=== PATIENT | female | born 1970 | race Caucasian/White ===

== ENCOUNTER 2017-07-26 13:14 | Emergency (ER) | payer BC ==
[2017-07-26 13:15] VITALS: BP 136/75
[2017-07-26 13:19] VITALS: BMI 29.8
--- NOTE | 2017-07-26 13:20 | ED.ABDFE ---
HPI - Time seen Time seen: 13:15 - HPI Comment HPI Comment: PATIENT DENIES DYSURIA OR HEMATURIA. NO FEVER. - Complaint Chief Complaint Doctors Comments: SUDDEN ONSET OF LEFT FLANK AND BACK PAIN AND LLQ ABDOMINAL PAIN BOTED TODAY WITH NAUSEA. - Nurses notes reviewed Nurses Notes Review: Yes - Source History Provided: Parent - Mode of arrival Mode of Arrival: Ambulatory - Timing Came on: Suddenly - Duration Duration: Constant Duration: Days - Severity Severity: Moderate - Quality Quality: Sharp - Context Onset: Suddenly History of: None - Modifying Worsening Factors: Nothing Improving Factors: Nothing - Associated signs and symptoms Associated Signs and Symptoms: Nausea PMH - PMH Past Surgical History: Yes Surgical History: Appendectomy, Hysterectomy - Social History Do you use any recreational Drugs:: No ROS - Review of Systems Constitutional: No Symptoms Reported Eyes: No Symptoms Reported ENTM: No Symptoms Reported Respiratoy: No Symptoms Reported Cardiovascular: No Symptoms Reported Gastrointestinal/Abdominal: Abdominal Pain Genitourinary: Pain (LEFT FLANK PAIN.). negative: Dysuria, Frequency, Hematuria Neurological: No Symptoms Reported Musculoskeletal: Back Pain Integumentary: No Symptoms Reported Hematologic/Lymphatic: No Symptoms Reported Endocrine: No Symptoms Reported All Other Systems: Reviewed and Negative PE - Vital Signs Vitals: Temperature 98.6 F Pulse Rate 61 Respiratory Rate 18 Blood Pressure 136/75 O2 Sat by Pulse Oximetry 100 - General Limitations: No Limitations General Appearance: Alert - Head Head Exam: Normal Inspection - Eyes Eye exam: Normal Appearance - ENT ENT Exam: Normal External Ear Exam - Neck Neck Exam: Trachea Midline - Chest Chest Inspection: Symmetric Chest Wall Rise - Respiratory Respiratory Exam: Normal Lung Sounds Bilat Respiratory Exam: Bilateral Clear to Auscultation - Cardiovascular Cardiovascular Exam: Regular Rate, Normal Rhythm, Normal Heart Sounds - Abdominal Exam Abdominal Exam: Normal Bowel Sounds, Soft, Tenderness Abdominal Tenderness: LLQ, Moderate - Rectal Rectal Exam: Deferred - Back Back Exam: (L) CVA Tenderness - Extremeties Extremities Exam: Normal Inspection - External Exam: Female: Deferred : Speculum Exam (Female): Deferred : Bimanual Exam (female): Deferred - Neurologic Neurological Exam: Alert, Oriented X3 - Skin Skin Exam: Normal Color MDM - Differential Diagnosis Differential Diagnosis- Considerations may include:: Bowel Obstruction, Diverticular disease, Gastritus/PUD, Gastroenteritis, Pancreatitis, Urinary tract infection, Urolithiasis Course - Treatment Treatment: SEE ORDERS. IV PAIN AND NAUSEA MED IN ED AND IV FLUID IN ED. - Reevaluation 1st: Improved (PAIN IMPROVED) - Education/Counseling Education/Counseling: Patient, Education Educated On: Diagnosis, Needs for Follow Up ROR - Labs Reviewed Laboratory Results Reviewed?: Yes Result Diagrams: 07/26/17 13:25 07/26/17 13:25 Laboratory: WBC 14.9 X10^3/uL (3.6-10.0) H 07/26/17 13:25 RBC 5.27 X10^6/uL (3.5-5.4) 07/26/17 13:25 Hgb 14.8 g/dL (12.0-16.0) 07/26/17 13:25 Hct 43.2 % (36.0-47.0) 07/26/17 13:25 MCV 81.9 fL (80.0-100.0) 07/26/17 13:25 MCH 28.0 pg (27.0-34.0) 07/26/17 13:25 MCHC 34.2 g/dL (33.0-35.0) 07/26/17 13:25 RDW 14.2 % (11.6-16.5) 07/26/17 13:25 Plt Count 332 X10^3/uL (150.0-450.0) 07/26/17 13:25 MPV 8.5 fL (7.4-11.0) 07/26/17 13:25 Neut % (Auto) 82.2 % (42.0-75.0) H 07/26/17 13:25 Lymph % (Auto) 11.7 % (21.0-51.0) L 07/26/17 13:25 [place] % (Auto) 4.8 % (0.0-13.0) 07/26/17 13:25 Eos % (Auto) 0.8 % (0.9-2.9) L 07/26/17 13:25 Baso % (Auto) 0.5 % (0.2-1.0) 07/26/17 13:25 Neut # (Auto) 12.2 x10^3/uL (2.2-4.8) H 07/26/17 13:25 Lymph # (Auto) 1.7 X10^3/uL (1.3-2.9) 07/26/17 13:25 [place] # (Auto) 0.7 x10^3/uL (0.3-0.8) 07/26/17 13:25 Eos # (Auto) 0.1 x10^3/uL (0.0-0.2) 07/26/17 13:25 Baso # (Auto) 0.1 X10^3/uL (0.0-0.1) 07/26/17 13:25 Absolute Nucleated RBC 0.0 /100WBC 07/26/17 13:25 Sodium 140 mmol/L (136-145) 07/26/17 13:25 Corrected Sodium 141 mmol/L (136-145) 07/26/17 13:25 Potassium 4.3 mmol/L (3.5-5.1) 07/26/17 13:25 Chloride 104 mmol/L (98-107) 07/26/17 13:25 Carbon Dioxide 25.3 mmol/L (21-32) 07/26/17 13:25 BUN 17 mg/dL (7-18) 07/26/17 13:25 Creatinine 1.10 mg/dL (0.55-1.02) H 07/26/17 13:25 Est GFR (MDRD) Af Amer > 60 (>60) 07/26/17 13:25 Est GFR (MDRD) Non-Af 57 (>60) L 07/26/17 13:25 Glucose 139 mg/dL (65-99) H 07/26/17 13:25 Calcium 9.0 mg/dL (8.5-10.1) 07/26/17 13:25 Corrected Calcium TNP 07/26/17 13:25 Total Bilirubin 1.00 mg/dL (0.2-1.0) 07/26/17 13:25 AST 10 Units/L (15-37) L 07/26/17 13:25 ALT 21 Units/L (12-78) 07/26/17 13:25 Alkaline Phosphatase 74 Units/L (46-116) 07/26/17 13:25 Total Protein 7.7 g/dL (6.4-8.2) 07/26/17 13:25 Albumin 3.9 g/dL (3.4-5.0) 07/26/17 13:25 Globulin 3.8 g/dL (2.5-4.5) 07/26/17 13:25 Albumin/Globulin Ratio 1.0 Ratio (1.1-2.1) L 07/26/17 13:25 Amylase 53 Units/L (25-115) 07/26/17 13:25 Lipase 169 Units/L (73-393) 07/26/17 13:25 Specimen Type Random urine 07/26/17 13:50 Urine Color Yellow (YELLOW) 07/26/17 13:50 Urine Appearance Cloudy (CLEAR) 07/26/17 13:50 Urine pH 6.0 (5.0 - 8.0) 07/26/17 13:50 Ur Specific [place] 1.025 (1.000-1.030) 07/26/17 13:50 Urine Protein 3+ (NEGATIVE) 07/26/17 13:50 Urine Glucose (UA) Negative (NEGATIVE) 07/26/17 13:50 Urine Ketones 1+ (NEGATIVE) 07/26/17 13:50 Urine Occult Blood 5+ (NEGATIVE) 07/26/17 13:50 Urine Nitrite Negative (NEGATIVE) 07/26/17 13:50 Urine Bilirubin 1+ (NEGATIVE) 07/26/17 13:50 Urine Urobilinogen 1+ (NORMAL) 07/26/17 13:50 Ur Leukocyte Esterase 1+ (NEGATIVE) 07/26/17 13:50 Urine RBC Tntc /HPF (NONE SEEN) 07/26/17 13:50 Urine WBC 3-5 /HPF (NONE SEEN) 07/26/17 13:50 Ur Squamous Epith Cells Many /HPF (NEGATIVE) 07/26/17 13:50 Amorphous Sediment 2+ /HPF (NEGATIVE) 07/26/17 13:50 Urine Bacteria 1+ /HPF (NEGATIVE) 07/26/17 13:50 Ur Culture Indicated? No/not indicated 07/26/17 13:50 - XRAY XRAY Interpreted by: Radiologist (REPORT DISCUSS WITH PATIENT.) - Diagnosis Discharge Problem: Ureteral stone with hydronephrosis, Left flank pain Abdominal pain Qualifiers: Abdominal location: left lower quadrant Qualified Code(s): R10.32 - Left lower quadrant pain - Discharge Plan Disposition: 01 HOME, SELF-CARE Condition: Stable Prescriptions: Hydrocodone-Acet 5 mg/325 mg [[place] 5/325 mg Tab] 1 tab PO Q6H PRN #20 tab PRN Reason: Pain Ketorolac Tromethamine [Toradol Tab] 10 mg PO Q8H PRN #15 tab PRN Reason: Pain Ondansetron [Zofran ODT 8 mg] 8 mg PO Q8H PRN #12 tab PRN Reason: Nausea/Vomiting Tamsulosin HCl [Flomax] 0.4 mg PO DAILY #10 cap - Follow ups/Referrals Follow ups/Referrals: ERI BRICE [Primary Care Provider] - 3 days - Instructions Instructions: Abdominal Pain, Adult, Kidney Stones, [id number], Hydronephrosis, Flank Pain, Adult, [id number]-[id number] Additional Instructions: RETURN TO ED IF WORSE.
[2017-07-26 13:31] LABS: BASOPHILS # (AUTO) 0.1 X10^3/uL (0.0-0.1); BASOPHILS % (AUTO) 0.5 % (0.2-1.0); EOSINOPHILS # (AUTO) 0.1 x10^3/uL (0.0-0.2); EOSINOPHILS % (AUTO) 0.8 % (0.9-2.9); HEMATOCRIT 43.2 % (36.0-47.0); HEMOGLOBIN 14.8 g/dL (12.0-16.0); LYMPHOCYTES # (AUTO) 1.7 X10^3/uL (1.3-2.9); LYMPHOCYTES % (AUTO) 11.7 % (21.0-51.0); MEAN CORPUSCULAR HGB CONC 34.2 g/dL (33.0-35.0); MEAN CORPUSCULAR VOLUME 81.9 fL (80.0-100.0); MEAN PLATELET VOLUME 8.5 fL (7.4-11.0); MONOCYTES # (AUTO) 0.7 x10^3/uL (0.3-0.8); MONOCYTES % (AUTO) 4.8 % (0.0-13.0); NEUTROPHILS # (AUTO) 12.2 x10^3/uL (2.2-4.8); NEUTROPHILS % (AUTO) 82.2 % (42.0-75.0); PLATELET COUNT 332 X10^3/uL (150.0-450.0); RED BLOOD COUNT 5.27 X10^6/uL (3.5-5.4); RED CELL DISTRIBUTION WIDTH 14.2 % (11.6-16.5); WHITE BLOOD COUNT 14.9 X10^3/uL (3.6-10.0)
[2017-07-26 13:44] LABS: ALANINE AMINOTRANSFERASE 21 Units/L (12-78); ALBUMIN 3.9 g/dL (3.4-5.0); ALKALINE PHOSPHATASE 74 Units/L (46-116); AMYLASE 53 Units/L (25-115); ASPARTATE AMINO TRANSFERASE 10 Units/L (15-37); BLOOD UREA NITROGEN 17 mg/dL (7-18); CARBON DIOXIDE 25.3 mmol/L (21-32); CHLORIDE 104 mmol/L (98-107); COR NA(FOR HYPERGLY) 141 mmol/L (136-145); LIPASE 169 Units/L (73-393); SODIUM 140 mmol/L (136-145); TOTAL PROTEIN 7.7 g/dL (6.4-8.2); eGFR BLACK RACES > 60 (>60); eGFR NON BLACK RACES 57 (>60)
[2017-07-26 13:55] LABS: BILIRUBIN,URINE 1+ (NEGATIVE); BLOOD/HEMOGLOBIN,URINE 5+ (NEGATIVE); GLUCOSE, URINE NEGATIVE (NEGATIVE); KETONES,URINE 1+ (NEGATIVE); LEUKOCYTE ESTERASE ,URINE 1+ (NEGATIVE); NITRITES,URINE NEGATIVE (NEGATIVE); PROTEIN,URINE 3+ (NEGATIVE); UROBILINOGEN,URINE 1+ (NORMAL)
[2017-07-26 14:06] LABS: APPEARANCE,URINE CLOUDY (CLEAR); COLOR,URINE YELLOW (YELLOW); RBC,URINE TNTC /HPF (NONE SEEN)
[2017-07-26 14:07] LABS: AMORPHOUS SEDIMENT,UR 2+ /HPF (NEGATIVE); BACTERIA,URINE 1+ /HPF (NEGATIVE); SQUAMOUS EPITHELIAL CELL,UR MANY /HPF (NEGATIVE)
--- NOTE | 2017-07-26 14:20 | CT ---
CT ABDOMEN AND PELVIS WITHOUT CONTRAST CLINICAL HISTORY: 47-year-old female with abdominal pain and left flank pain. COMPARISON: None. TECHNIQUE: Multiple contiguous computed tomographic axial images of the abdomen and pelvis were obtai bindu without the use of oral or intravenous contrast. Images were reformatted in the coronal and sagit yemi planes. FINDINGS: The lung bases demonstrate no evidence of focal air-space opacification, pleural effusion, pneumothor ax, or suspicious pulmonary nodules. The imaged inferior mediastinum and heart are normal in appeara nce without evidence of pericardial effusion. Liver, pancreas and spleen are unremarkable. Small 1.5 cm splenule inferior to the hilum. Status post cholecystectomy. Adrenal glands and right kidney are unremarkable. Left kidney is edematous appearing with mild perinephric stranding and moderate hydroureteronephrosis secondary to a distal obstructing 7 mm stone lattice just proximal to the UVJ. There are no perinephric fluid collections. Ureters follow a normal course to a decompressed urinary bladder. Status post hysterectomy. Vaginal cuff and adnexa are unremarkable. Multiple pelvic phleboliths are present. Status post appendectomy. The bowel is without obstruction or inflammation and there is no free flui d or free air within the peritoneal cavity. Fat density 2.5 x 3.5 x 2.5 cm well-circumscribed lesion that appears to be within the wall of the anti mesenteric border of the transverse colon just distal to the hepatic flexure is most consistent with lipoma. Diverticulosis without CT evidence of divertic ulitis. There are no pathologically enlarged lymph nodes in the abdomen or pelvis. The arteriovascular structures are within normal limits for a study without contrast. Soft tissues are normal. The osseous structures are intact without fracture or malalignment. IMPRESSION: 1. Obstructing distal left ureteral stone measuring 7 mm just proximal to the UVJ with resultant mode rate hydroureteronephrosis and edematous appearance of the left kidney. 2. 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 3. Diverticulosis without CT evidence of diverticulitis. 4. Status post cholecystectomy and appendectomy. Reported By:
[2017-07-26] MEDS ORDERED: FLOMAX PO ONE (14:42)
[2017-07-26] MEDS ORDERED: NS 1000 ML 1,000 ML IV ONE (14:54)
[2017-07-26] MEDS ORDERED: NS 1000 ML 1,000 ML ONE (14:57)
[2017-07-31] MEDS ORDERED: TORADOL 30 MG VIAL IVP ONE (09:00)
[2017-07-31] MEDS ORDERED: ZOFRAN INJ 4 MG VIAL IVP ONE (09:00)
== END 2017-07-26 16:46 | disposition home or self-care (01) ==
LOC: ER 13:24
DX: N13.2 Hydronephrosis with renal and ureteral calculous obstruction (principal); R10.32 Left lower quadrant pain; K57.90 Diverticulosis of intestine, part unspecified, without perforation or abscess without bleeding; Z90.49 Acquired absence of other specified parts of digestive tract
CPT/HCPCS: 36415; 74176; 80053; 81001; 82150; 83690; 85025; 96365; 96374; 96375; 99283; J1885; J2405

== ENCOUNTER 2022-12-31 12:03 | Observation (INO) ==
--- NOTE | 2022-12-31 12:23 | DR.HEADACH ---
HPI Time Seen Time Seen by Provider: 12/31/22 12:21 Primary Care Physician Primary Care Physician: BAILEY BRICE Complaint/Symptoms Chief Complaint:: PT STATES THAT SHE HAD COVID ON 12/13, AND SINCE THEN OFF AND ON SHE HAS HAD MIGRAINES THAT CAUSE VOMITING. PT SEEN BAILEY BRICE IN OFFICE ON Saturday12/24/22, AND WAS PUT ON BP MEDICATION. COVID-19 Coronavirus risk:travel/contact w/high risk person: No Has patient experienced Coronavirus symptoms: No Source History Provided: Patient Mode of Arrival Mode of Arrival: Wheelchair Timing Onset of Chief Complaint: 12/13/22 PMH PMH Past Medical History: Yes Past Medical History: Anxiety, Depression and Hyperthyroidism Past Surgical History: Yes Surgical History: Appendectomy, Cholecystectomy and Hysterectomy Family History History of Family Medical Conditions: Yes Family Medical History: Hypertension Social History Does patient currently use any type of tobacco product: No Have you used tobacco products in the last 12 months: No Type of Tobacco Use: None Does any household member use tobacco: No Alcohol Use: None Do you use any recreational Drugs:: No Lives With: Spouse Lives Where: Home Travel Risk Coronavirus risk:travel/contact w/high risk person: No Has patient experienced Coronavirus symptoms: No Infectious screening Have you traveled outside the country in the last 6 months?: No Isolation: Standard PE Vital Signs Vitals: Vital Signs Temperature 98.1 F Pulse Rate 76 Pulse Rate 65 Pulse Rate 66 Pulse Rate 79 Pulse Rate 93 Pulse Rate 97 Pulse Rate 102 Pulse Rate 89 Pulse Rate 91 Pulse Rate 73 Pulse Rate 74 Pulse Rate 71 Pulse Rate 99 Pulse Rate 62 Pulse Rate 68 Pulse Rate 65 Pulse Rate 62 Pulse Rate 59 Pulse Rate 72 Respiratory Rate 15 Respiratory Rate 10 Respiratory Rate 14 Respiratory Rate 27 Respiratory Rate 20 Respiratory Rate 20 Respiratory Rate 20 Respiratory Rate 18 Blood Pressure 139/73 Blood Pressure 126/80 Blood Pressure 120/73 Blood Pressure 129/73 Blood Pressure 131/77 Blood Pressure 142/84 Blood Pressure 146/82 Blood Pressure 146/82 Blood Pressure 149/84 Blood Pressure 149/84 Blood Pressure 162/96 O2 Sat by Pulse Oximetry 98 O2 Sat by Pulse Oximetry 99 O2 Sat by Pulse Oximetry 98 O2 Sat by Pulse Oximetry 94 O2 Sat by Pulse Oximetry 97 O2 Sat by Pulse Oximetry 97 O2 Sat by Pulse Oximetry 95 O2 Sat by Pulse Oximetry 94 O2 Sat by Pulse Oximetry 95 O2 Sat by Pulse Oximetry 94 O2 Sat by Pulse Oximetry 94 O2 Sat by Pulse Oximetry 93 O2 Sat by Pulse Oximetry 98 O2 Sat by Pulse Oximetry 92 O2 Sat by Pulse Oximetry 97 O2 Sat by Pulse Oximetry 99 O2 Sat by Pulse Oximetry 97 O2 Sat by Pulse Oximetry 98 ROR Labs Reviewed 12/31/22 12:45 12/31/22 12:45 Laboratory: WBC 12.1 X10^3/uL (3.6-10.0) H 12/31/22 12:45 RBC 5.59 X10^6/uL (3.5-5.4) H 12/31/22 12:45 Hgb 14.9 g/dL (12.0-16.0) 12/31/22 12:45 Hct 45.0 % (36.0-47.0) 12/31/22 12:45 MCV 80.5 fL (80.0-100.0) 12/31/22 12:45 MCH 26.6 pg (27.0-34.0) L 12/31/22 12:45 MCHC 33.1 g/dL (33.0-35.0) 12/31/22 12:45 RDW 14.7 % (11.6-16.5) 12/31/22 12:45 Plt Count 279 X10^3/uL (150.0-450.0) 12/31/22 12:45 MPV 8.9 fL (7.4-11.0) 12/31/22 12:45 Neut % (Auto) 80.6 % (42.0-75.0) H 12/31/22 12:45 Lymph % (Auto) 11.4 % (21.0-51.0) L 12/31/22 12:45 [place] % (Auto) 6.4 % (0.0-13.0) 12/31/22 12:45 Eos % (Auto) 0.5 % (0.9-2.9) L 12/31/22 12:45 Baso % (Auto) 1.1 % (0.2-1.0) H 12/31/22 12:45 Neut # (Auto) 9.8 x10^3/uL (2.2-4.8) H 12/31/22 12:45 Lymph # (Auto) 1.4 X10^3/uL (1.3-2.9) 12/31/22 12:45 [place] # (Auto) 0.8 x10^3/uL (0.3-0.8) 12/31/22 12:45 Eos # (Auto) 0.1 x10^3/uL (0.0-0.2) 12/31/22 12:45 Baso # (Auto) 0.1 X10^3/uL (0.0-0.1) 12/31/22 12:45 Absolute Nucleated RBC 0.1 /100WBC 12/31/22 12:45 Sodium 141 mmol/L (136-145) 12/31/22 12:45 Corrected Sodium 141 mmol/L (136-145) 12/31/22 12:45 Potassium 4.4 mmol/L (3.5-5.1) 12/31/22 12:45 Chloride 105 mmol/L (98-107) 12/31/22 12:45 Carbon Dioxide 28.1 mmol/L (21-32) 12/31/22 12:45 BUN 14 mg/dL (7-18) 12/31/22 12:45 Creatinine 0.80 mg/dL (0.55-1.02) 12/31/22 12:45 Est GFR (MDRD) Af Amer > 60 (>60) 12/31/22 12:45 Est GFR (MDRD) Non-Af > 60 (>60) 12/31/22 12:45 Glucose 120 mg/dL (65-99) H 12/31/22 12:45 Calcium 8.9 mg/dL (8.5-10.1) 12/31/22 12:45 Corrected Calcium TNP 12/31/22 12:45 Total Bilirubin 0.50 mg/dL (0.2-1.0) 12/31/22 12:45 AST 21 Units/L (15-37) 12/31/22 12:45 ALT 59 Units/L (12-78) 12/31/22 12:45 Alkaline Phosphatase 95 Units/L (46-116) 12/31/22 12:45 Total Protein 7.7 g/dL (6.4-8.2) 12/31/22 12:45 Albumin 3.5 g/dL (3.4-5.0) 12/31/22 12:45 Globulin 4.2 g/dL (2.5-4.5) 12/31/22 12:45 Albumin/Globulin Ratio 0.8 Ratio (1.1-2.1) L 12/31/22 12:45 Opioid Opioid Risk Tool Age (Bandar box if 16-45): No History of Preadolescent Sexual Abuse: No Total: 0 Total Score Risk Category: Low Risk Copyright: Hayes predicting aberrant behaviors Discharge Plan Diagnosis Discharge Problem: Headache Discharge Plan Patient Disposition: HOME, SELF-CARE Condition: Stable Prescriptions: No Action fluoxetine 10 MG capsule 10 mg PO DAILY Omeprazole [Prilosec 40 mg] 40 MG Cap 40 mg PO DAILY hydrocodone-acetaminophen 5 MG/325 MG tablet 1 tab PO Q6H PRN (Reason: Pain) Qty: 20 0RF ondansetron [Zofran ODT] 8 MG tablet,disintegrating 8 mg PO Q8H PRN (Reason: Nausea/Vomiting) Qty: 12 0RF ketorolac 10 MG tablet 10 mg PO Q8H PRN (Reason: Pain) Qty: 15 0RF tamsulosin 0.4 MG capsule,extended release 24hr 0.4 mg PO DAILY Qty: 10 0RF meloxicam 15 mg tablet 15 mg PO QDAY rizatriptan 10 mg tablet PO omeprazole 40 mg capsule,delayed release(DR/EC) 40 mg PO QDAY fuilgxksiy-jovnlpnbmtlwx-jhuu 50-325-40 mg tablet PO dicyclomine 20 mg tablet 20 mg PO TID levothyroxine 50 mcg tablet 50 mcg PO QDAY fluoxetine 10 mg capsule 10 mg PO QDAY codeine-guaifenesin 10-100 mg/5 mL liquid PO ergocalciferol (vitamin D2) [Vitamin D2] 1,250 mcg (50,000 unit) capsule 1,250 mcg PO 2XW levofloxacin 500 mg tablet 500 mg PO QDAY ondansetron 4 mg tablet,disintegrating PO olopatadine 0.6 % spray,non-aerosol INTRANASAL Patient Comments: [NO ORIGINAL SIG] metronidazole 500 mg tablet 500 mg PO Q6H Qty: 28 0RF ciprofloxacin HCl 500 mg tablet 500 mg PO Q12H Qty: 14 0RF ondansetron HCl 4 mg tablet 4 mg PO Q6H PRNQty: 15 0RF hydrocodone-acetaminophen 5-325 mg tablet 1 tab PO Q6H MDD 4 PRNQty: 15 0RF Discharge Comment: Return to er if worse. Health Concerns: Post Hospitalization: new medications and changes needed to prevent readmission or further decline. Pt educated and given instructions on all concerns. Plan of Treatment: Continue with present treatment and follow up plan. Pt is to keep follow up appointment as instructed and take medications as ordered. Follow ups/Referrals Follow ups/Referrals: ERI BRICE [Primary Care Provider] - 3 days Instructions Instructions: Migraine Headache, Dnuc-du-Ainp Stand Alone Forms: Post Hospital Follow Up Care
[2022-12-31] MEDS ORDERED: COMPAZINE INJ IM ONE (12:30)
[2022-12-31] MEDS ORDERED: DILAUDID INJ IM ONE (12:30)
[2022-12-31] MEDS ORDERED: DILAUDID INJ ONE (12:34)
[2022-12-31] MEDS ORDERED: COMPAZINE INJ ONE (12:35)
[2022-12-31 13:01] LABS: MEAN CORPUSCULAR HEMOGLOBIN 26.6 pg (27.0-34.0); MEAN CORPUSCULAR HGB CONC 33.1 g/dL (33.0-35.0); RED CELL DISTRIBUTION WIDTH 14.7 % (11.6-16.5)
[2022-12-31 13:05] LABS: BASOPHILS # (AUTO) 0.1 X10^3/uL (0.0-0.1); BASOPHILS % (AUTO) 1.1 % (0.2-1.0); EOSINOPHILS # (AUTO) 0.1 x10^3/uL (0.0-0.2); EOSINOPHILS % (AUTO) 0.5 % (0.9-2.9); HEMOGLOBIN 14.9 g/dL (12.0-16.0); LYMPHOCYTES # (AUTO) 1.4 X10^3/uL (1.3-2.9); LYMPHOCYTES % (AUTO) 11.4 % (21.0-51.0); MEAN CORPUSCULAR VOLUME 80.5 fL (80.0-100.0); MEAN PLATELET VOLUME 8.9 fL (7.4-11.0); MONOCYTES # (AUTO) 0.8 x10^3/uL (0.3-0.8); MONOCYTES % (AUTO) 6.4 % (0.0-13.0); NEUTROPHILS # (AUTO) 9.8 x10^3/uL (2.2-4.8); NEUTROPHILS % (AUTO) 80.6 % (42.0-75.0); PLATELET COUNT 279 X10^3/uL (150.0-450.0); RED BLOOD COUNT 5.59 X10^6/uL (3.5-5.4); WHITE BLOOD COUNT 12.1 X10^3/uL (3.6-10.0)
[2022-12-31 13:06] LABS: ALANINE AMINOTRANSFERASE 59 Units/L (12-78); ALBUMIN 3.5 g/dL (3.4-5.0); ALKALINE PHOSPHATASE 95 Units/L (46-116); ASPARTATE AMINO TRANSFERASE 21 Units/L (15-37); BLOOD UREA NITROGEN 14 mg/dL (7-18); CALCIUM 8.9 mg/dL (8.5-10.1); CARBON DIOXIDE 28.1 mmol/L (21-32); CHLORIDE 105 mmol/L (98-107); COR NA(FOR HYPERGLY) 141 mmol/L (136-145); GLUCOSE 120 mg/dL (65-99); POTASSIUM 4.4 mmol/L (3.5-5.1); SODIUM 141 mmol/L (136-145); TOTAL PROTEIN 7.7 g/dL (6.4-8.2); eGFR NON BLACK RACES > 60 (>60)
[2022-12-31] MEDS ORDERED: TORADOL 30 MG VIAL ONE (13:42)
[2022-12-31] MEDS ORDERED: ZOFRAN INJ 4 MG VIAL ONE (13:42)
[2022-12-31] MEDS ORDERED: XYLOCAINE 2 % (PLAIN) ONE (13:51)
[2022-12-31] MEDS ORDERED: ZOFRAN INJ 4 MG VIAL IVP ONE (13:54)
[2022-12-31] MEDS ORDERED: TORADOL 30 MG VIAL IVP ONE (13:54)
[2022-12-31] MEDS ORDERED: XYLOCAINE 2 % (PLAIN) IJ ONE (13:54)
[2022-12-31] MEDS ORDERED: BETADINE SOLN ONE ×2 (14:15→15:16)
[2022-12-31] MEDS ORDERED: NS 1,000 ML IV 1,000 ML ONE (14:38)
[2022-12-31] MEDS ORDERED: BETADINE SOLN TOP ONE (14:45)
[2022-12-31] MEDS: NS 1,000 ML IV 1,000 ML IV SCH ×2 (14:47→21:45)
[2022-12-31] MEDS ORDERED: XYLOCAINE 1 % (PLAIN) ONE (15:16)
[2022-12-31 15:46] LABS: APPEARANCE,CSF CLEAR; COLOR,CSF COLORLESS
--- NOTE | 2022-12-31 15:46 | PCM.PROG ---
Progress Note - Past Medical Family Social History Allergies: Allergies No Known Drug Allergies Allergy (Unknown, Verified 12/23/22 21:01) Onset Date: 04/11/2019 - Vital Signs and I&O's Vital Signs: Vital Signs Temperature 98.1 F Pulse Rate 82 Pulse Rate 77 Pulse Rate 70 Pulse Rate 68 Pulse Rate 74 Pulse Rate 76 Pulse Rate 65 Pulse Rate 66 Pulse Rate 79 Pulse Rate 93 Pulse Rate 97 Pulse Rate 102 Pulse Rate 89 Pulse Rate 91 Pulse Rate 73 Pulse Rate 74 Pulse Rate 71 Pulse Rate 99 Pulse Rate 62 Pulse Rate 68 Pulse Rate 65 Pulse Rate 62 Pulse Rate 59 Pulse Rate 72 Respiratory Rate 16 Respiratory Rate 12 Respiratory Rate 13 Respiratory Rate 13 Respiratory Rate 14 Respiratory Rate 15 Respiratory Rate 10 Respiratory Rate 14 Respiratory Rate 27 Respiratory Rate 20 Respiratory Rate 20 Respiratory Rate 20 Respiratory Rate 18 Blood Pressure 143/90 Blood Pressure 149/101 Blood Pressure 135/72 Blood Pressure 135/72 Blood Pressure 131/75 Blood Pressure 131/75 Blood Pressure 139/73 Blood Pressure 126/80 Blood Pressure 120/73 Blood Pressure 129/73 Blood Pressure 131/77 Blood Pressure 142/84 Blood Pressure 146/82 Blood Pressure 146/82 Blood Pressure 149/84 Blood Pressure 149/84 Blood Pressure 162/96 O2 Sat by Pulse Oximetry 98 O2 Sat by Pulse Oximetry 100 O2 Sat by Pulse Oximetry 98 O2 Sat by Pulse Oximetry 98 O2 Sat by Pulse Oximetry 99 O2 Sat by Pulse Oximetry 98 O2 Sat by Pulse Oximetry 99 O2 Sat by Pulse Oximetry 98 O2 Sat by Pulse Oximetry 94 O2 Sat by Pulse Oximetry 97 O2 Sat by Pulse Oximetry 97 O2 Sat by Pulse Oximetry 95 O2 Sat by Pulse Oximetry 94 O2 Sat by Pulse Oximetry 95 O2 Sat by Pulse Oximetry 94 O2 Sat by Pulse Oximetry 94 O2 Sat by Pulse Oximetry 93 O2 Sat by Pulse Oximetry 98 O2 Sat by Pulse Oximetry 92 O2 Sat by Pulse Oximetry 97 O2 Sat by Pulse Oximetry 99 O2 Sat by Pulse Oximetry 97 O2 Sat by Pulse Oximetry 98 - Laboratory and Diagnostics Result Diagrams: 12/31/22 12:45 12/31/22 12:45 Labs: Laboratory WBC 12.1 X10^3/uL (3.6-10.0) H 12/31/22 12:45 RBC 5.59 X10^6/uL (3.5-5.4) H 12/31/22 12:45 Hgb 14.9 g/dL (12.0-16.0) 12/31/22 12:45 Hct 45.0 % (36.0-47.0) 12/31/22 12:45 MCV 80.5 fL (80.0-100.0) 12/31/22 12:45 MCH 26.6 pg (27.0-34.0) L 12/31/22 12:45 MCHC 33.1 g/dL (33.0-35.0) 12/31/22 12:45 RDW 14.7 % (11.6-16.5) 12/31/22 12:45 Plt Count 279 X10^3/uL (150.0-450.0) 12/31/22 12:45 MPV 8.9 fL (7.4-11.0) 12/31/22 12:45 Neut % (Auto) 80.6 % (42.0-75.0) H 12/31/22 12:45 Lymph % (Auto) 11.4 % (21.0-51.0) L 12/31/22 12:45 [place] % (Auto) 6.4 % (0.0-13.0) 12/31/22 12:45 Eos % (Auto) 0.5 % (0.9-2.9) L 12/31/22 12:45 Baso % (Auto) 1.1 % (0.2-1.0) H 12/31/22 12:45 Neut # (Auto) 9.8 x10^3/uL (2.2-4.8) H 12/31/22 12:45 Lymph # (Auto) 1.4 X10^3/uL (1.3-2.9) 12/31/22 12:45 [place] # (Auto) 0.8 x10^3/uL (0.3-0.8) 12/31/22 12:45 Eos # (Auto) 0.1 x10^3/uL (0.0-0.2) 12/31/22 12:45 Baso # (Auto) 0.1 X10^3/uL (0.0-0.1) 12/31/22 12:45 Absolute Nucleated RBC 0.1 /100WBC 12/31/22 12:45 Sodium 141 mmol/L (136-145) 12/31/22 12:45 Corrected Sodium 141 mmol/L (136-145) 12/31/22 12:45 Potassium 4.4 mmol/L (3.5-5.1) 12/31/22 12:45 Chloride 105 mmol/L (98-107) 12/31/22 12:45 Carbon Dioxide 28.1 mmol/L (21-32) 12/31/22 12:45 BUN 14 mg/dL (7-18) 12/31/22 12:45 Creatinine 0.80 mg/dL (0.55-1.02) 12/31/22 12:45 Est GFR (MDRD) Af Amer > 60 (>60) 12/31/22 12:45 Est GFR (MDRD) Non-Af > 60 (>60) 12/31/22 12:45 Glucose 120 mg/dL (65-99) H 12/31/22 12:45 Calcium 8.9 mg/dL (8.5-10.1) 12/31/22 12:45 Corrected Calcium TNP 12/31/22 12:45 Total Bilirubin 0.50 mg/dL (0.2-1.0) 12/31/22 12:45 AST 21 Units/L (15-37) 12/31/22 12:45 ALT 59 Units/L (12-78) 12/31/22 12:45 Alkaline Phosphatase 95 Units/L (46-116) 12/31/22 12:45 Total Protein 7.7 g/dL (6.4-8.2) 12/31/22 12:45 Albumin 3.5 g/dL (3.4-5.0) 12/31/22 12:45 Globulin 4.2 g/dL (2.5-4.5) 12/31/22 12:45 Albumin/Globulin Ratio 0.8 Ratio (1.1-2.1) L 12/31/22 12:45 Procedures (ALL) - Lumbar puncture Consent obtained: written consent Time out performed: Yes Patient position: upright Skin prep: 0.5% chlorhexidine/alcoho Local anesthetic used: lidocaine 2% (SQ 2cc) Interspace used: other (L2-L3) Spinal needle gauge: 20G Opening pressure: 25 Fluid initially obtained: clear Complications: none (tolerated well. MSBT. x1 attempt.)
[2022-12-31] MEDS ORDERED: NS 100 ML IV 100 ML ONE (15:53)
[2022-12-31] MEDS ORDERED: ROCEPHIN VIAL 2 GRAMS 2 G in NS 100 ML IV 100 ML IV SCH (15:53)
[2022-12-31] MEDS ORDERED: ROCEPHIN VIAL 2 GRAMS ONE (15:53)
[2022-12-31 16:13] LABS: GLUCOSE,CSF 59 mg/dl (40-75); TOT VOL 8 mL
[2022-12-31 16:15] LABS: WHITE BLOOD CELL,CSF 18 Cubic mm
[2022-12-31] MEDS ORDERED: CONSULT PHARMACY - POTASSIUM & MAGNESIUM XX SCH (18:07)
[2022-12-31 18:27] VITALS: BMI 35.9
[2022-12-31] MEDS: ZOVIRAX VIAL 500 MG 1,000 MG in NS 250 ML IV 250 ML IV SCH (21:44)
[2022-12-31] MEDS: MORPHINE SULFATE INJ 2 MG INJ IVP PRN (22:24)
[2023-01-01] MEDS: NS 1,000 ML IV 1,000 ML IV SCH ×2 (00:44→06:10)
[2023-01-01] MEDS: MORPHINE SULFATE INJ 2 MG INJ IVP PRN ×4 (03:09→22:44)
[2023-01-01] MEDS: ZOFRAN INJ 4 MG VIAL IVP PRN ×3 (03:09→15:07)
[2023-01-01 04:51] LABS: BASOPHILS # (AUTO) 0.1 X10^3/uL (0.0-0.1); BASOPHILS % (AUTO) 1.2 % (0.2-1.0); EOSINOPHILS # (AUTO) 0.1 x10^3/uL (0.0-0.2); EOSINOPHILS % (AUTO) 0.4 % (0.9-2.9); HEMATOCRIT 40.6 % (36.0-47.0); HEMOGLOBIN 13.6 g/dL (12.0-16.0); LYMPHOCYTES # (AUTO) 1.9 X10^3/uL (1.3-2.9); LYMPHOCYTES % (AUTO) 16.1 % (21.0-51.0); MEAN CORPUSCULAR HEMOGLOBIN 26.8 pg (27.0-34.0); MEAN CORPUSCULAR HGB CONC 33.4 g/dL (33.0-35.0); MEAN CORPUSCULAR VOLUME 80.3 fL (80.0-100.0); MEAN PLATELET VOLUME 9.4 fL (7.4-11.0); MONOCYTES # (AUTO) 1.1 x10^3/uL (0.3-0.8); MONOCYTES % (AUTO) 9.5 % (0.0-13.0); NEUTROPHILS # (AUTO) 8.7 x10^3/uL (2.2-4.8); NEUTROPHILS % (AUTO) 72.8 % (42.0-75.0); PLATELET COUNT 245 X10^3/uL (150.0-450.0); RED BLOOD COUNT 5.05 X10^6/uL (3.5-5.4); RED CELL DISTRIBUTION WIDTH 14.8 % (11.6-16.5); WHITE BLOOD COUNT 11.9 X10^3/uL (3.6-10.0)
[2023-01-01 05:09] LABS: ALANINE AMINOTRANSFERASE 45 Units/L (12-78); ALBUMIN 2.9 g/dL (3.4-5.0); ALKALINE PHOSPHATASE 76 Units/L (46-116); ASPARTATE AMINO TRANSFERASE 17 Units/L (15-37); BLOOD UREA NITROGEN 13 mg/dL (7-18); CALCIUM 8.7 mg/dL (8.5-10.1); CARBON DIOXIDE 27.3 mmol/L (21-32); CHLORIDE 107 mmol/L (98-107); COR CA(FOR HYPOALB) 9.6 mg/dL (8.5-10.1); COR NA(FOR HYPERGLY) 141 mmol/L (136-145); CREATININE 0.72 mg/dL (0.55-1.02); GLUCOSE 112 mg/dL (65-99); POTASSIUM 4.4 mmol/L (3.5-5.1); SODIUM 141 mmol/L (136-145); TOTAL PROTEIN 6.4 g/dL (6.4-8.2); eGFR NON BLACK RACES > 60 (>60)
[2023-01-01] MEDS: ZOVIRAX VIAL 500 MG 1,000 MG in NS 250 ML IV 250 ML IV SCH ×3 (05:36→22:29)
[2023-01-01] MEDS ORDERED: ROCEPHIN VIAL 2 GRAMS 2 G in NS 100 ML IV 100 ML IV SCH ×2 (09:00→21:00)
[2023-01-01] MEDS: ROCEPHIN VIAL 2 GRAMS 2 G in NS 100 ML IV 100 ML IV SCH ×2 (09:35→20:41)
[2023-01-01] MEDS ORDERED: PHENERGAN INJ 25 MG IM PRN (16:22)
--- NOTE | 2023-01-01 16:30 | DR.H&P ---
H&P History & Physical for Day of: H&P Date: 01/01/23 Chief Complaint Chief Complaint: headache, nausea and vomiting Allergies Allergies Allergy/AdvReac Type Severity Reaction Status Date / Time No Known Drug Allergies Allergy Unknown Verified 12/23/22 21:01 History of Present Illness History of Present Illness: Ms. Clark is a 52-year-old female with past medical history of migraines, GERD, anxiety presented with intractable headache associated with nausea and vomiting. Patient had COVID infection couple weeks ago and was treated outpatient with Paxlovid and steroids. She presented to the ER on 12/23/[address] head was negative for any acute changes. She was treated with IV pain medicine and nausea medicine. She was discharged with opioids and muscle relaxers. She states the medicine helped control her headache for a little bit but did not completely resolve. She reports constant headache in the front and back of her head. Denies any changes in vision. She reports it is worse with sound and light. She has a history of migraines and takes Fioricet as needed and rizatriptan as needed. Her PCP had recommended her to be admitted and be evaluated for meningitis. She reports having chronic neck pain. Denies any history of neck or back surgery. Denies any trauma. In the ER LP was performed and fluid was sent for analysis and culture. She was started on empiric Rocephin and acyclovir for meningitis coverage. She was also given morphine and Toradol for pain control. Labs and imaging reviewed -WBC 11.9 -Brain CT: No acute changes -Cervical x-ray:Mild cervical spondylosis without other significant abnormalities. Plan: Follow CSF fluid studies and culture. Continue IV Rocephin and acyclovir. MRI brain and neck ordered. Continue pain control with IV morphine as needed. Continue antiemetics, changed to promethazine. We will start clear liquids and resume home medications. Monitor a.m. labs and imaging Past Medical History Past Medical History: Anxiety, Depression and Hyperthyroidism Past Surgical History Surgical History: Appendectomy, Cholecystectomy and Hysterectomy Family History Family Medical History: Hypertension Social History Does patient currently use any type of tobacco product: No Have you used tobacco products in the last 12 months: No Type of Tobacco Use: None Does any household member use tobacco: No Alcohol Use: None Drug Use: Prescription Drugs Medications Home Medications: Home Medications Medication Instructions Recorded Confirmed Type benazepril 5 mg tablet 5 mg PO DAILY 12/31/22 12/31/22 History fcjvnasnhy-pakogxoniqldh-csiihmce 1 tab PO Q6H PRN 12/31/22 12/31/22 History 50 mg-325 mg-40 mg tablet carisoprodol 350 mg tablet 350 mg PO BID PRN 12/31/22 12/31/22 History dicyclomine 20 mg tablet 20 mg PO TID PRN 12/31/22 12/31/22 History ergocalciferol (vitamin D2) 1,250 1,250 mcg PO 2XW 12/31/22 12/31/22 History mcg (50,000 unit) capsule (Vitamin D2) fluoxetine 10 mg capsule 10 mg PO QDAY 12/31/22 12/31/22 History levothyroxine 50 mcg tablet 50 mcg PO QDAY 12/31/22 12/31/22 History meloxicam 15 mg tablet 15 mg PO QDAY 12/31/22 12/31/22 History omeprazole 40 mg capsule,delayed 40 mg PO QDAY 12/31/22 12/31/22 History release ondansetron 4 mg disintegrating 4 mg PO Q6H PRN 12/31/22 12/31/22 History tablet rizatriptan 10 mg tablet 10 mg PO BID PRN 12/31/22 12/31/22 History tizanidine 4 mg tablet 4 mg PO TID PRN 12/31/22 12/31/22 History Labs 01/01/23 04:15 01/01/23 04:15 Labs: 12/31/22 15:32 Cerebral Spinal Fluid CSF Culture - Preliminary 12/31/22 15:32 Cerebral Spinal Fluid Gram Stain - Final Laboratory WBC 11.9 X10^3/uL (3.6-10.0) H 01/01/23 04:15 RBC 5.05 X10^6/uL (3.5-5.4) 01/01/23 04:15 Hgb 13.6 g/dL (12.0-16.0) 01/01/23 04:15 Hct 40.6 % (36.0-47.0) 01/01/23 04:15 MCV 80.3 fL (80.0-100.0) 01/01/23 04:15 MCH 26.8 pg (27.0-34.0) L 01/01/23 04:15 MCHC 33.4 g/dL (33.0-35.0) 01/01/23 04:15 RDW 14.8 % (11.6-16.5) 01/01/23 04:15 Plt Count 245 X10^3/uL (150.0-450.0) 01/01/23 04:15 MPV 9.4 fL (7.4-11.0) 01/01/23 04:15 Neut % (Auto) 72.8 % (42.0-75.0) 01/01/23 04:15 Lymph % (Auto) 16.1 % (21.0-51.0) L 01/01/23 04:15 [place] % (Auto) 9.5 % (0.0-13.0) 01/01/23 04:15 Eos % (Auto) 0.4 % (0.9-2.9) L 01/01/23 04:15 Baso % (Auto) 1.2 % (0.2-1.0) H 01/01/23 04:15 Neut # (Auto) 8.7 x10^3/uL (2.2-4.8) H 01/01/23 04:15 Lymph # (Auto) 1.9 X10^3/uL (1.3-2.9) 01/01/23 04:15 [place] # (Auto) 1.1 x10^3/uL (0.3-0.8) H 01/01/23 04:15 Eos # (Auto) 0.1 x10^3/uL (0.0-0.2) 01/01/23 04:15 Baso # (Auto) 0.1 X10^3/uL (0.0-0.1) 01/01/23 04:15 Absolute Nucleated RBC 0.1 /100WBC 01/01/23 04:15 Monocytes 100 % 12/31/22 15:32 Clot Appearance Negative 12/31/22 15:32 Sodium 141 mmol/L (136-145) 01/01/23 04:15 Corrected Sodium 141 mmol/L (136-145) 01/01/23 04:15 Potassium 4.4 mmol/L (3.5-5.1) 01/01/23 04:15 Chloride 107 mmol/L (98-107) 01/01/23 04:15 Carbon Dioxide 27.3 mmol/L (21-32) 01/01/23 04:15 BUN 13 mg/dL (7-18) 01/01/23 04:15 Creatinine 0.72 mg/dL (0.55-1.02) 01/01/23 04:15 Est GFR (MDRD) Af Amer > 60 (>60) 01/01/23 04:15 Est GFR (MDRD) Non-Af > 60 (>60) 01/01/23 04:15 Glucose 112 mg/dL (65-99) H 01/01/23 04:15 POC Glucose (mg/dL) 102 mg/dL (65-99) H 01/01/23 11:59 Calcium 8.7 mg/dL (8.5-10.1) 01/01/23 04:15 Corrected Calcium 9.6 mg/dL (8.5-10.1) 01/01/23 04:15 Total Bilirubin 0.50 mg/dL (0.2-1.0) 01/01/23 04:15 AST 17 Units/L (15-37) 01/01/23 04:15 ALT 45 Units/L (12-78) 01/01/23 04:15 Alkaline Phosphatase 76 Units/L (46-116) 01/01/23 04:15 Total Protein 6.4 g/dL (6.4-8.2) 01/01/23 04:15 Albumin 2.9 g/dL (3.4-5.0) L 01/01/23 04:15 Globulin 3.5 g/dL (2.5-4.5) 01/01/23 04:15 Albumin/Globulin Ratio 0.8 Ratio (1.1-2.1) L 01/01/23 04:15 CSF Appearance Clear 12/31/22 15:32 CSF Color Colorless 12/31/22 15:32 CSF WBC 18 Cubic mm H* 12/31/22 15:32 CSF RBC 1745 Cubic mm 12/31/22 15:32 CSF Glucose 59 mg/dl (40-75) 12/31/22 15:32 CSF Total Protein 17.0 mg/dL (15-45) 12/31/22 15:32 Pleural Fluid Volume 8 mL 12/31/22 15:32 Review of Systems Constitutional: Weakness Eyes: No Symptoms Reported Respiratory: No Symptoms Reported Cardiovascular: No Symptoms Reported Gastrointestinal: Nausea and Vomiting Musculoskeletal: Neck Pain Neurological: Other (Headache) Physical Exam Vital Signs: Vital Signs Temperature 98 F Pulse Rate [Left Brachial] 66 Respiratory Rate 20 Respiratory Rate 18 Blood Pressure [Left Arm] 158/74 O2 Sat by Pulse Oximetry 93 Oriented: Normal Eyes: Normal Nose: Normal Respiratory: Clear Throughout Cardiovascular: Normal Auscultation: Bowel Sounds: Normal Palpation: Normal Tenderness: Normal Skin: Normal Musculoskeletal: Normal (Mild cervical paraspinal tenderness. ROM intact. Slight discomfort with range of motion.) Psychiatric: Normal Mood Description: Calm Affect: Normal Speech Pattern: Clear and Appropriate Assessment/Plan (1) Headache: Qualifiers: Headache chronicity pattern: chronic headache Headache type: unspecified Intractability: intractable Qualified Code(s): R51.9 - Headache, unspecified; G89.29 - Other chronic pain Status: Acute (2) Neck pain: Status: Acute (3) Nausea & vomiting: Qualifiers: Vomiting type: unspecified Qualified Code(s): R11.2 - Nausea with vomiting, unspecified Status: Acute (4) Post-COVID chronic headache: Status: Acute (5) HTN (hypertension): Qualifiers: Hypertension type: primary hypertension Qualified Code(s): I10 - Essential (primary) hypertension Status: Acute
[2023-01-01] MEDS ORDERED: LOTENSIN TAB 10 MG PO SCH (17:00)
--- NOTE | 2023-01-01 19:29 | MRI ---
HISTORYintractable headacheSTUDYBRAIN W/O CONCOMPARISONHead CT performed on 12/23/2022TECHNIQUEMultiplanar multi-sequence MRI of the brain was obtained utilizing standard departmental protocol. Sagittal and axial T1 weighted images were obtained. Axial T2 and flair weighted images were performed as well. Axial diffusion weighted and ADC trace mapping was performed.FINDINGSFocus of increased T1 signal within the cortex the occipital lobe measuring approximately 4 mm demonstrating restricted diffusion along small amount maida edema. Tiny subcortical FLAIR signal hyperintensity within the right parietal lobe on axial image 15 and left external capsule/insular cortex on axial image 11.The midline structures appear unremarkable. No extra-axial fluid collections are observed. The ventricular system appears symmetric and nondilated. The CP angle is normal in its appearance without brainstem mass or evidence for acoustic neuroma. The flow voids on both T1 and T2 weighted imaging appear unremarkable. The extracranial structures are unremarkable.IMPRESSIONSmall focus of intraparenchymal hemorrhage within the cortex of the left occipital lobe with adjacent vasogenic edema, given location and morphology this is consistent with intraparenchymal hemorrhage with suspicion for underlying lesion/metastatic disease.Small round FLAIR signal hyperintensities within the cortex of the right parietal lobe and left external capsule/insular cortex are nonspecific, given the above described finding this raises concern for additional lesions/metastatic disease.Recommend correlation with follow-up contrast enhanced brain MRI for improved characterization.Electronically signed by: CHIQUI FLORES (Jan 01, 2023 19:28:13)
--- NOTE | 2023-01-01 19:32 | MRI ---
Exam:CERVICAL W/O CONIndication: intractable headache/ neck painComparison: [None available]Technique:Multiplanar, multisequence imaging of the cervical spine without IV contrast administration.Findings:Cervical spine alignment is normal. Vertebral heights are maintained. No localizing or pathologic marrow signal abnormality within cervical spine. No prevertebral or paraspinal fluid collection. Visualized posterior fossa demonstrates no mass or mass effect. The cervical cord demonstrates normal signal without evidence of atrophy or expansion.Visualized cervical soft tissues demonstrate no adenopathy or acute inflammatory process.At C2-3 unremarkableAt C3-4 disc osteophyte complex and uncovertebral hypertrophy causes mild spinal canal stenosis without significant neural foraminal narrowing.At C4-5 disc osteophyte complex and uncovertebral hypertrophy causes mild spinal canal stenosis without significant neural foraminal narrowing.At C5-6 disc osteophyte complex and uncovertebral hypertrophy causes mild spinal canal stenosis with mild right and minimal left-sided neural foraminal narrowing.At C6-7 disc osteophyte complex causes no significant spinal or neural foraminal narrowing.At C7-T1 unremarkableIMPRESSIONMultilevel discogenic degenerative change facet arthropathy causing varying degrees of spinal canal and neural foraminal stenosis as described above.Electronically signed by: CHIQUI FLORES (Jan 01, 2023 19:31:01)
[2023-01-01 21:05] VITALS: BP 147/70; PULSE 79; TEMP 98.1; O2SAT 95
[2023-01-01 22:44] VITALS: RESP 18
[2023-01-02] MEDS ORDERED: PROzac PO SCH (09:00)
[2023-01-02] MEDS ORDERED: SYNTHROID 50 mcg TAB PO SCH (09:00)
[2023-01-02] MEDS ORDERED: PriLOSEC PO SCH (09:00)
== END 2023-01-01 22:40 | disposition short-term general hospital (02) ==
LOC: ER 12:03 → MED/SURG 12:03
PROVIDERS: ADMIT Internal Medicine; ATTEND Internal Medicine
DX: F41.9 Anxiety disorder, unspecified; Z86.16 Personal history of COVID-19; M47.892 Other spondylosis, cervical region; G44.89 Other headache syndrome; K21.9 Gastro-esophageal reflux disease without esophagitis